=== PATIENT | female | born 1975 | race American Indian/Alaskan Native ===

== ENCOUNTER 2021-01-28 06:10 | Emergency (ER) | payer SELFPAY ==
--- NOTE | 2021-01-28 06:44 | Emergency Department Report ---
HPI - General Chief Complaint: Vaginal Bleeding Time Seen by Provider: 01/28/21 06:27 - HPI HPI: Room 7 The patient is a 45-year-old female present with a chief complaint of "my water broke." The patient is states she is approximately 2 weeks but has not yet seen TEACHING AIDE for this . She states she got up this morning at 05: 00 to use the bathroom when she felt a isbell of fluid that was clear and pink. Patient denies passage of tissue. Patient states yesterday she had intermittent lower abdominal pain that is difficult to describe but did not feel like contractions. Patient denies nausea/vomiting or fever. Patient states they live in [place] they are just visiting for [facility] ED Past Medical Hx - Past Medical History Previous Medical History?: No - Surgical History Past Surgical History?: Yes Additional Surgical History: RIGHT LUMPECTOMY-benign - Family History Family history: no significant - Social History Smoking Status: Never Smoker Substance Use Type: None (Denies illicit drug) - Medications Home Medications: Home Medications Medication Instructions Recorded Confirmed Last Taken Type cephALEXin [Keflex] 500 mg PO Q8HR #21 cap 01/28/21 Unknown Rx ED Review of Systems ROS: Stated complaint: . WATER BROKE Other details as noted in HPI Constitutional: denies: fever Eyes: denies: eye pain ENT: denies: throat pain Respiratory: no symptoms reported Cardiovascular: denies: chest pain Endocrine: no symptoms reported Gastrointestinal: abdominal pain. denies: nausea, vomiting Genitourinary: abnormal menses Musculoskeletal: denies: back pain Neurological: denies: headache Physical Exam - Physical Exam Vital Signs: Vital Signs 01/28/21 06:14 Temperature 98.2 F Pulse Rate 94 H Respiratory 18 Rate Blood Pressure 152/93 O2 Sat by Pulse 100 Oximetry Physical Exam: GENERAL: The patient is well-developed well-nourished female lying on stretcher not appearing to be in acute distress. [] HEENT: Normocephalic. Atraumatic. Extraocular motions are intact. Patient has moist mucous membranes. NECK: Supple. Trachea midline CHEST/LUNGS: Clear to auscultation. There is no respiratory distress noted. HEART/CARDIOVASCULAR: Regular. There is no tachycardia. There is no gallop rub or murmur. ABDOMEN: Abdomen is soft, with mild discomfort to palpation in the left lower quad. Patient has normal bowel sounds. There is no abdominal distention. SKIN: There is no rash. There is no edema. There is no diaphoresis. NEURO: The patient is awake, alert, and oriented. The patient is cooperative. The patient has no focal neurologic deficits. The patient has normal speech. GCS 15 MUSCULOSKELETAL:There is no evidence of acute injury. ED Course Vital Signs 01/28/21 06:14 Temperature 98.2 F Pulse Rate 94 H Respiratory 18 Rate Blood Pressure 152/93 O2 Sat by Pulse 100 Oximetry - Consultations Consultation #1: 01/28/21 08:27 TEACHING AIDE paged 01/28/21 08:33 Case discussed with TEACHING AIDE Dr. Dumont-explained to patient that she will likely miscarry. Uncertain the timeframe of passage of fetus but usually within days. Recommend antibiotics and have patient follow-up with TEACHING AIDE promptly ED Medical Decision Making - Lab Data Result diagrams: 01/28/21 07:02 01/28/21 07:02 - Radiology Data Radiology results: report reviewed (Pelvic ultrasound), image reviewed (Pelvic ultrasound) [address] [address] Ultrasound Report Signed Patient: RADHA RICHEY MR#: [id number] : 1975 Acct:[id number] Age/Sex: 45 / F ADM Date: 01/28/21 Loc: ED Attending Dr: Ordering Physician: RENATO PEREZ MD Date of Service: 01/28/21 Procedure(s): US OB >= 14 weeks Fetus Accession Number(s): [id number] cc: RENATO PEREZ MD ULTRASOUND OBSTETRIC COMPLETE INDICATION / CLINICAL INFORMATION: Clear to pink vaginal drainage, 18 weeks . Clinical Gestational Age (GA) in weeks, days: 17 weeks 5 days TECHNIQUE: Transabdominal. COMPARISON: None available. FINDINGS: NUMBER: Single PRESENTATION: cephalic PLACENTA: anterofundal and free of the os. MATERNAL ADNEXA: No significant abnormality. AMNIOTIC FLUID VOLUME: Significantly diminished. No appreciable amniotic fluid is seen ANATOMY: Examination is not tailored to evaluate detailed anatomy. No anatomic abnormalities identified. MEASUREMENTS: - Biparietal Diameter = 4.0 cm = 18 weeks 0 days - Head Circumference = 14.5 cm = 17 weeks 5 days - Abdominal Circumference = 10.5 cm = 16 weeks 3 days - Femur Length = 2.8 cm = 18 weeks 5 days - Estimated Weight (in grams, if calculated): 199 - Heart Rate (beats per minute): 159 ADDITIONAL FINDINGS: The cervical os is closed and measures 5.1 cm. AVERAGE ULTRASOUND AGE (AUA) in weeks, days = 17 weeks 5 days IMPRESSION: 1. Single intrauterine with AUA of 17 weeks 5 days 2. Significantly diminished amniotic fluid volume. No appreciable amniotic fluid is seen. Findings are consistent with oligohydramnios/anhydramnios. Recommend TEACHING AIDE consultation. 3. The cervical os is closed and measures 5.1 cm. No other significant abnormality. Signer Name: Rafat Jones MD Signed: 01/28/2021 7:49 AM Workstation Name: [id number] Transcribed By: RICK Dictated By: RAFAT JONES MD Electronically Authenticated By: RAFAT JONES MD Signed Date/Time: 01/28/21748 DD/ 2 TD/TT: Print Cancel - Differential Diagnosis Threatened , inevitable , PROM Critical care attestation.: If time is entered above; I have spent that time in minutes in the direct care of this critically ill patient, excluding procedure time. ED Disposition Clinical Impression: Anhydramnios, Threatened Disposition: 01 HOME / SELF CARE / HOMELESS Is pt being admited?: No Does the pt Need Aspirin: No Condition: Stable Instructions: Threatened Miscarriage, [id number], Oligohydramnios Additional Instructions: Return to the emergency department should you develop worsening symptoms, herbert bility to tolerate food or liquids, high fever or any other concerns Prescriptions: cephALEXin [Keflex] 500 mg PO Q8HR #21 cap Referrals: PRIMARY CARE, [Primary Care Provider] - 3-5 Days Your, TEACHING AIDE [Other] - 3-5 Days Time of Disposition: 08:43
--- NOTE | 2021-01-28 07:53 | Ultrasound Report ---
ULTRASOUND OBSTETRIC COMPLETE INDICATION / CLINICAL INFORMATION: Clear to pink vaginal drainage, 18 weeks . Clinical Gestational Age (GA) in weeks, days: 17 weeks 5 days TECHNIQUE: Transabdominal. COMPARISON: None available. FINDINGS: NUMBER: Single PRESENTATION: cephalic PLACENTA: anterofundal and free of the os. MATERNAL ADNEXA: No significant abnormality. AMNIOTIC FLUID VOLUME: Significantly diminished. No appreciable amniotic fluid is seen ANATOMY: Examination is not tailored to evaluate detailed anatomy. No anatomic abnormalities identified. MEASUREMENTS: - Biparietal Diameter = 4.0 cm = 18 weeks 0 days - Head Circumference = 14.5 cm = 17 weeks 5 days - Abdominal Circumference = 10.5 cm = 16 weeks 3 days - Femur Length = 2.8 cm = 18 weeks 5 days - Estimated Weight (in grams, if calculated): 199 - Heart Rate (beats per minute): 159 ADDITIONAL FINDINGS: The cervical os is closed and measures 5.1 cm. AVERAGE ULTRASOUND AGE (AUA) in weeks, days = 17 weeks 5 days IMPRESSION: 1. Single intrauterine with AUA of 17 weeks 5 days 2. Significantly diminished amniotic fluid volume. No appreciable amniotic fluid is seen. Findings ar e consistent with oligohydramnios/anhydramnios. Recommend DIGITAL LEARNING PLATFORMS MANAGER consultation. 3. The cervical os is closed and measures 5.1 cm. No other significant abnormality. Signer Name: Rad Jones MD Signed: 01/28/2021 7:49 AM Workstation Name: [id number]
[2021-01-28 07:59] LABS: Basophils % (Auto) 0.2 % (0.0-1.8); Eosinophils # (Auto) 0.1 K/mm3 (0.0-0.4); Eosinophils % (Auto) 0.9 % (0.0-4.3); Hematocrit 37.4 % (30.3-42.9); Hemoglobin 12.2 gm/dl (10.1-14.3); Lymphocytes # (Auto) 1.4 K/mm3 (1.2-5.4); Lymphocytes % (Auto) 13.4 % (13.4-35.0); Mean Corpuscular HGB Conc 33 % (30-34); Mean Corpuscular Volume 81 fl (79-97); Monocytes # (Auto) 0.7 K/mm3 (0.0-0.8); Monocytes % (Auto) 6.7 % (0.0-7.3); Platelet Count 228 K/mm3 (140-440); Red Blood Count 4.62 M/mm3 (3.65-5.03); Red Cell Distribution Width 14.1 % (13.2-15.2)
[2021-01-28 08:03] LABS: BUN/Creatinine Ratio 12; Blood Urea Nitrogen 7 mg/dL (7-17); Calcium 8.8 mg/dL (8.4-10.2); Hemolysis Index 16
[2021-01-28 08:12] LABS: Color,Urine Straw (Yellow)
[2021-01-28 08:13] LABS: Bilirubin,Urine NEG (Negative); Blood,Urine MOD (Negative); Mucus,Urine FEW /HPF; Protein,Urine <15 mg/dL mg/dL (Negative); Urobilinogen,Urine < 2.0 mg/dL (<2.0)
[2021-01-28 09:04] VITALS: BP 146/92
== END 2021-01-28 09:10 | disposition home or self-care (01) ==
LOC: ED 06:10
DX: O20.0 Threatened abortion (principal); Z3A.01 Less than 8 weeks gestation of pregnancy
CPT/HCPCS: 36415; 76805; 80048; 81001; 84702; 85025; 86900; 86901; 99284